=== PATIENT | female | born 1985 | race Caucasian/White ===

== ENCOUNTER 2017-01-11 07:26 | Emergency (ER) | payer OTHER ==
[~2017-01-11] VITALS: Ht 175.3 cm; Wt 90.9 kg
[2017-01-11 07:30] VITALS: TEMP 36.5; Ht 175.3 cm; Wt 90.9 kg
[2017-01-11] MEDS ORDERED: HYDROmorphone INJ 1 MG/ML SYR IV STA ×3 (07:49→09:30)
[2017-01-11] MEDS ORDERED: ONDANSETRON INJ 2 MG/ML 2 ML VIAL IV STA ×2 (07:49→08:26)
[2017-01-11] MEDS ORDERED: PREG1CAP70 PO (08:02)
[2017-01-11] MEDS ORDERED: PRED10TA PO (08:02)
[2017-01-11] MEDS ORDERED: OXYB5TAB74 PO (08:02)
[2017-01-11] MEDS ORDERED: LEVO25TA PO (08:02)
[2017-01-11] MEDS ORDERED: CYCL0.052 OP (08:02)
[2017-01-11] MEDS ORDERED: METOPROLOL (08:02)
[2017-01-11] MEDS ORDERED: MONT1TAB3 PO (08:02)
[2017-01-11] MEDS ORDERED: CITA40TA12 PO (08:02)
[2017-01-11] MEDS ORDERED: VALA500T60 PO (08:02)
[2017-01-11] MEDS ORDERED: PANT40TA PO (08:02)
[2017-01-11] MEDS ORDERED: LISI-729 PO (08:02)
[2017-01-11] MEDS ORDERED: CLON0.5T3 PO (08:02)
[2017-01-11] MEDS ORDERED: DOCU100C PO (08:02)
[2017-01-11] MEDS ORDERED: ADVIN10050 (08:02)
[2017-01-11] MEDS ORDERED: BUPR-83 PO (08:02)
[2017-01-11] MEDS ORDERED: FURO-85 PO (08:02)
[2017-01-11] MEDS ORDERED: HYDR200T5 PO (08:02)
[2017-01-11] MEDS ORDERED: [UNRECOGNIZED DRUG - REMARK] (08:04)
--- NOTE | 2017-01-11 08:11 | DIAGNOSTIC IMAGING REPORT ---
CHEST ONE VIEW PORTABLE CLINICAL HISTORY: 31 years-old Female presenting with CHEST PAIN. TECHNIQUE: Portable upright AP view of the chest was obtained. COMPARISON: None. FINDINGS: Cardiomediastinal silhouette normal. Lungs and pleural spaces clear. Osseous structures normal. Upper abdomen normal. IMPRESSION: 1. No acute cardiopulmonary disease. Electronically signed by: Chris Corley M.D. 01/11/2017 8:09 AM Dictated Date/Time: 01/11/2017 8:09 AM
[2017-01-11] MEDS ORDERED: ALBUTEROL 0.083% NEBU SOLN 3 ML VIAL INH STA (08:26)
[2017-01-11 08:32] LABS: HEMATOCRIT 38.8 % (37-47); MEAN CELL VOLUME 88.2 fL (80-100); MEAN CORPUSCULAR HEMOGLOBIN 30.5 pg (25-34); MEAN CORPUSCULAR HGB CONC 34.5 g/dl (32-36); PLATELET COUNT 306 K/uL (130-400)
[2017-01-11 08:53] LABS: BUN/CREATININE RATIO 10.4 (10-20); CALCIUM 8.9 mg/dl (8.5-10.1); CREATININE 0.77 mg/dl (0.60-1.20); POTASSIUM 3.5 mmol/L (3.5-5.1)
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
[2017-01-11 09:28] LABS: BASO % 0.3 %; BASO ABS # 0.02 K/uL (0-0.2); COMPLETE YES; EOS % 1.2 %; LYMPH % 41.7 %; LYMPH ABS # 3.13 K/uL (1.2-3.4); MONO % 8.4 %; NEUT % 48.4 %
[2017-01-11] MEDS ORDERED: OXYC1TAB3 PO (09:31)
[2017-01-11 09:55] VITALS: BP 151/80; PULSE 66; O2SAT 100
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
== END 2017-01-11 10:10 | disposition home or self-care (01) ==
LOC: C.EDB 07:29
DX: S02.2XXA Fracture of nasal bones, initial encounter for closed fracture (principal); W22.8XXA Striking against or struck by other objects, initial encounter; R07.9 Chest pain, unspecified; R00.1 Bradycardia, unspecified; I10 Essential (primary) hypertension; J45.909 Unspecified asthma, uncomplicated; Z96.643 Presence of artificial hip joint, bilateral; Z79.899 Other long term (current) drug therapy; Z88.0 Allergy status to penicillin; Z88.2 Allergy status to sulfonamides